=== PATIENT | female | born 1990 | race Caucasian/White ===

== ENCOUNTER 2019-04-30 11:16 | Outpatient (RCR) | payer OTHER ==
[~2019-04-30 11:16] MED LIST: LEXAPRO20 MG PO; TRI-SPRINTEC 281 TAB PO; XANAX 0.5MG0.5 MG PO
== END 2019-07-29 | disposition home or self-care (01) ==
LOC: WSOH
DX: S60.579A Other superficial bite of hand of unspecified hand, initial encounter (principal); W55.01XA Bitten by cat, initial encounter; Y92.59 Other trade areas as the place of occurrence of the external cause; Y99.0 Civilian activity done for income or pay; F41.9 Anxiety disorder, unspecified; F32.9 Major depressive disorder, single episode, unspecified; Z79.899 Other long term (current) drug therapy

== ENCOUNTER 2019-06-24 13:30 | Outpatient (RCR) | payer OTHER | END 2019-09-22 | disposition home or self-care (01) | LOC: WSOH | DX: S60.571A Other superficial bite of hand of right hand, initial encounter (principal); S60.410A Abrasion of right index finger, initial encounter; W54.0XXA Bitten by dog, initial encounter; Y92.9 Unspecified place or not applicable; Y99.0 Civilian activity done for income or pay; Z79.899 Other long term (current) drug therapy; F41.9 Anxiety disorder, unspecified; F32.9 Major depressive disorder, single episode, unspecified ==

== ENCOUNTER 2020-08-11 21:25 | Emergency (ER) | payer SELFPAY ==
[~2020-08-11] VITALS: Ht 172.7 cm; Wt 100.0 kg
[2020-08-11 21:25] VITALS: TEMP 98.9
[2020-08-11 23:20] LABS: COLLECTION METHOD CLEAN CATCH
[2020-08-11 23:23] LABS: BASO % 0.3 % (0.0-2.0); EOS # 0.1 (0.0-0.7); EOS % 0.5 % (0-4.0); GRAN # 12.1 (1.4-6.5); GRAN % 79.8 % (42.2-75.2); HEMATOCRIT 37.4 % (37.0-47.0); HEMOGLOBIN 12.1 g/dl (12.5-16.0); LYMPH % 13.5 % (20.0-51.0); MEAN CELL VOLUME 87 fl (80.0-100.0); MEAN CORPUSCULAR HEMOGLOBIN 28 pg (27.0-31.0); MEAN CORPUSCULAR HGB CONC 32 g/dl (33.0-37.0); MEAN PLATELET VOLUME 9.6 fl (7.4-10.4); MONO # 0.8 (0.1-0.6); MONO % 5.4 % (1.7-9.3); PLATELET COUNT 326 K/mm3 (130-400); RED BLOOD COUNT 4.31 M/mm3 (4.10-5.30); REDCELL DISTRIBUTION WIDTH-CV 13.1 % (11.5-14.5)
[2020-08-11 23:28] LABS: MUCOUS Present /lpf; PH 5 (5-8); URINE APPEARANCE Cloudy; URINE BACTERIA Rare /hpf; URINE BILIRUBIN Negative (NEGATIVE); URINE BLOOD 3+ (NEGATIVE); URINE COLOR Yellow; URINE GLUCOSE Negative (NEGATIVE); URINE KETONE Negative (NEGATIVE); URINE LEUKOCYTE ESTERASE 1+ (NEGATIVE); URINE NITRATE Negative (NEGATIVE); URINE PROTEIN(semi-quant) 1+ (NEGATIVE); URINE UROBILINOGEN Negative (NEGATIVE)
[2020-08-11 23:32] LABS: ALBUMIN 4.7 gm/dL (3.5-5.0); BILIRUBIN,TOTAL 0.5 mg/dL (0.0-1.0); CALCIUM 9.6 mg/dL (8.4-10.2); CREATININE, serum 0.72 (0.52-1.25); POTASSIUM 3.7 mmol/L (3.4-5.0); TOTAL PROTEIN 8.3 gm/dL (6.4-8.2)
[2020-08-12 03:45] VITALS: BP 121/71; PULSE 88
== END 2020-08-12 04:00 | disposition short-term general hospital (02) ==
LOC: COL.ER 21:25
PROVIDERS: Emergency Medicine
DX: S32.039A Unspecified fracture of third lumbar vertebra, initial encounter for closed fracture (principal); S32.049A Unspecified fracture of fourth lumbar vertebra, initial encounter for closed fracture; V43.52XA Car driver injured in collision with other type car in traffic accident, initial encounter
CPT/HCPCS: J1170; J1885; J2405; J7030; Q9967